=== PATIENT | female | born 2000 | race Caucasian/White ===

== ENCOUNTER 2025-01-13 08:40 | Emergency (ER) | payer BC ==
[~2025-01-13] VITALS: Ht 162.6 cm; Wt 87.1 kg
[2025-01-13] MEDS ORDERED: IBUPROFEN 600 MG TABLET ONE (09:04)
[2025-01-13] MEDS: IBUPROFEN 600 MG TABLET PO ONE (09:08)
[2025-01-13] MEDS ORDERED: NAPR-1164 PO (09:26)
[2025-01-13 09:36] VITALS: BP 122/78; TEMP 98; O2SAT 98
== END 2025-01-13 09:37 | disposition home or self-care (01) ==
LOC: ER 08:51
DX: R07.89 Other chest pain (principal)
CPT/HCPCS: 71045-TC; 84703-TC

== ENCOUNTER 2025-03-15 11:19 | Emergency (ER) | payer BC ==
[~2025-03-15] VITALS: Ht 162.6 cm; Wt 83.9 kg
[~2025-03-15 11:19] MED LIST: NAPR-1164 PO
[2025-03-15 11:35] VITALS: BP 118/66; TEMP 98.6; O2SAT 98
[2025-03-15 12:18] LABS: APPEARANCE,URINE TURBID (CLEAR); BILIRUBIN,URINE 2+ (NEGATIVE); BLOOD, URINE 3+ Ery/uL (NEGATIVE); COLOR,URINE DARK YELLOW (YELLOW); KETONES,URINE 1+ mg/dL (NEGATIVE); LEUKOCYTE ESTERASE ,URINE 2+ (NEGATIVE); NITRITE, URINE POSITIVE (NEGATIVE); PROTEIN,URINE 3+ mg/dl (NEGATIVE); UGLUCOSE NEGATIVE (NEGATIVE)
[2025-03-15 12:22] LABS: ADD URINE CULTURE YES; BACTERIA,URINE 1+ /HPF (None Seen); MUCUS,URINE Few /LPF (None Seen); WBC,URINE 21-50 /HPF (0-3)
[2025-03-15] MEDS ORDERED: CEPH500T PO (12:24)
== END 2025-03-15 13:01 | disposition home or self-care (01) ==
LOC: ER 11:40
DX: N39.0 Urinary tract infection, site not specified (principal); R10.30 Lower abdominal pain, unspecified; Z79.899 Other long term (current) drug therapy
CPT/HCPCS: 81001; 87086-TC